=== PATIENT | female | born 1990 | race Caucasian/White ===

== ENCOUNTER 2021-09-22 09:51 | Outpatient (CLI) | payer OTHER, SELFPAY ==
--- NOTE | ~2021-09-22 | XR_ITS ---
EXAMINATION: XR hysterosalpingogram INDICATION: Irregular menstrual periods TECHNIQUE: Hysterosalpingogram was performed by Dr. Matt Henderson MD with fluoroscopic guidance. I w as present to obtain fluoroscopic images. Fluoroscopy exposure time was 0.3 minutes. The DAP for this procedure was 1.48 Gycm2. FINDINGS: [employer] Of [employer] radiograph demonstrates an unremarkable pelvis. Fluoroscopic images demonstrate a no rmal appearing endometrial cavity which has been cannulated. Upon injection of contrast, both fallop carlota tubes opacify and are normal in appearance. There is free spillage bilaterally. Uterus is withou t evidence of synechia. IMPRESSION: Patent fallopian tubes. Reviewed, dictated and finalized at location D. CAL ASSISTANT PER DIEM IMPRESSION: Patent fallopian tubes.
[2021-09-22 11:05] LABS: Beta HCG Quantitative < 2.39 mIU/ML
--- NOTE | 2021-09-22 11:52 | W.PM.PROC2 ---
Procedure Note - Detailed Date of Procedure 09/22/21 Pre-op Diagnosis Infertility Post-op Diagnosis same Procedure Performed Hysterosalpingogram Surgeon Matt Henderson MD Anesthesia none Indications unexplained infertility Findings normal hysterosalpingogram Description of Procedure the patient was placed on the fluoroscopy table. A speculum was placed in the vagina. Cervix was grasped with a tenaculum. The catheter was placed the uterine cavity and the bulb was inflated. The speculum was removed with the angiocath still placed in the intrauterine cavity. Dye was then removed. The catheter. Fluoroscopic images obtained this process. Patient experienced some moderate to severe discomfort. The balloon of the catheter was deflated and the catheter was removed while the images were being obtained. The procedure was terminated. Patient tolerated the procedure well. There were no complications. Estimated Blood Loss 0 Complications No immediate complications Condition stable Disposition other
== END 2021-09-22 09:52 | disposition home or self-care (01) ==
LOC: ANHIMG 09:54
PROVIDERS: Visit Provider Obstetrics & Gynecology
DX: Z01.89 Encounter for other specified special examinations (principal)
CPT/HCPCS: 36415; 58340; 74740; 84702; Q9966

== ENCOUNTER 2022-06-15 00:59 | Day surgery (SDC) | payer OTHER, SELFPAY ==
[2022-06-06 15:51] VITALS: BMI 21.4
--- NOTE | 2022-06-06 15:56 | PC.NURSE ---
Report to the Outpatient Waiting Room, entrance under the green pavilion located off [facility], at time 0600 on date 06/15/22. Planned Procedure Time: 0730. Time changes happen often and if your time is changed the preop area will call you the afternoon before. - You and your visitor will be asked to self-screen and do not enter if you have any COVID symptoms. - We encourage only one visitor and NO visitors under age 16 are allowed at this time. Your visitor will receive communication by the phone number that is given day of service. - The patient visitor is requested to social distance or may leave the building when not with patient due to restrictions. - A mask is OPTIONAL within the hospital. Patients may have clear liquids (water, carbonated beverages, clear teas, apple juice) until 3 hours prior to surgery with a maximum of 20 ounces. - No food from midnight until time of surgery Take the following medications with a SIP of water the morning of surgery: NONE Medications to discontinue per physician: VITAMINS Date to take last dose: 06/11/22 Please no make-up, nail indonesian, hairspray, perfume, deodorant, or body powder the day of surgery. No jewelry (including any body piercings) or valuables the day of surgery, leave them at home. Please take a shower or bath the night before, or the morning of, surgery with an antibacterial soap. Wear comfortable, loose fitting clothing. - Jewelry must be removed prior to entering the operating room. Rings and piercings that are not removed may be cut off. - The hospital will not accept responsibility for valuables. - Please leave all valuables, including medications, at home the day of surgery. If you are going home after surgery, a licensed truck driver flatbed must drive you home. - NO public transportation without another adult. - We recommend that an adult stay with you for 24 hours following discharge. - We also recommend that you do not drive, make important decision, drink alcoholic beverages, or take any drugs that were not prescribed by your health care provider for at least 24 hours after your discharge time. Follow any additional instructions given to you from your surgeon. If you or anyone in your household have experienced Covid symptoms in the past week, please notify your surgeon or the nurse liaison at the phone number below for possible testing. Telephone instructions given to PT - RAFFAELE RIGGINS and asked if any additional questions and then verbalized understanding. Patient advised to call surgeon office or pre surgery nurse liaison [phone] if any additional questions.
[2022-06-15] VITALS (12 sets, daily range): BP systolic 108–133; BP diastolic 56–82; PULSE 61–85; RESP 14–20; TEMP 36.2–36.3; O2SAT 98–100
[2022-06-15] MEDS: ACETAMINOPHEN 500 MG TABLET 1000 MG PO (06:23)
[2022-06-15] MEDS: KETOROLAC 15 MG/ML VIAL (*BKC) IV PUSH (06:33)
--- NOTE | 2022-06-15 06:51 | P.PNAN_ITS ---
Anes - Initial Pre Proc Eval Procedure: Operation Date: 06/15/22 07:30 Proposed Procedures p Diagnostic Laparoscopy - Matt Henderson MD Date/Time: 06/15/22 06:51 Surgeon: Matt Henderson MD Pre Op Diagnosis: pelvic pain Patient Data Age: 32 Gender: F Height: 1.7 m Weight: 64 kg Last Vital Signs Temp 36.2 C L 06/15/22 06:11 Pulse 74 06/15/22 06:11 Resp 16 06/15/22 06:11 BP 121/71 06/15/22 06:11 Pulse Ox 100 06/15/22 06:11 O2 Del Method Room Air 06/15/22 06:11 Allergies Allergy/AdvReac Type Severity Reaction Status Date / Time amoxicillin Allergy Intermediate Hives Verified 06/15/22 06:21 Penicillins Allergy Intermediate Hives Verified 06/15/22 06:21 Sulfa (Sulfonamide Allergy Intermediate Hives Verified 06/15/22 06:21 Antibiotics) Home Medications Medication Instructions Recorded Confirmed Type multivitamin 1 tablet PO DAILY 06/06/22 06/15/22 History Patient hx anesthesia problems: none Family hx anesthesia problems: none Results Review: All pre-operative results and documents have been reviewed as part of the pre- operative evaluation. [facility] Past Medical History Medical History (Updated 06/15/22 @ 06:51 by Zachery Chiang MD) Pain due to interstitial cystitis Surgical History Surgical History (Updated 06/15/22 @ 06:52 by Zachery Chiang MD) History of hip surgery Social History Social History Smoking status: Former smoker Tobacco type: cigarettes Additional smoking assessment comments: SOCIALLY IN COLLEGE 7 YRS AGO Alcohol intake: current Alcohol use details: RARE - SOCIAL Substance use: never Substance use type: does not use Living arrangements: with family Spiritual care concerns: No Anes - Eval Final PreProcedure Day of Procedure 06/15/22 06:51 Patient weight: normal Heart: regular rate and rhythm Lungs: clear to auscultation Airway: Mallampati scale class 1 Neurological: alert and oriented Last oral intake: >/= 8 hours ASA classification: I Emergent: no Anesthetic plan: proceed Anesthesia type and monitoring: general ETT and standard monitoring Results Review: All pre-operative results and documents have been reviewed as part of the pre- operative evaluation. Informed Consent: The patient's anesthetic plan and its attendant risks and benefits were discussed with the patient/family/POA. Questions were solicited and answers provided to the satisfaction of the patient/family/POA.
[2022-06-15] MEDS: LACTATED RINGERS 1,000 ML 30 ML IV CONT ×2 (06:52→09:07)
[2022-06-15] MEDS: SCOPOLAMINE 1.5 MG PATCH TRANSDERM (06:52)
--- NOTE | 2022-06-15 07:19 | WPDHPUPDATE1 ---
History and Physical Update Update Date/Time: 06/15/22 07:19 History and Physical has been reviewed, including an updated exam of the patient. There are NO changes in the patient's condition. Risks, benefits, and alternatives have been discussed and questions answered. Patient agrees to proceed with procedure.
--- NOTE | 2022-06-15 09:31 | W.PM.PROC2 ---
Procedure Note - Detailed Date of Procedure 06/15/22 Pre-op Diagnosis pelvic pain Post-op Diagnosis Same ( endometriosis) Procedure Performed radical resection of endometriosis Surgeon Matt Henderson MD Anesthesia General Indications pelvic pain Findings multiple endometriosis implants in the posterior cul-de-sac. Classic endometriosis with dark clusters of hemorrhagic tissue with surrounding scarring and vascularity, otherwise normal appearing uterus tubes and ovaries. Description of Procedure The patient was taken to the operating room. She was prepped and draped in the dorsal lithotomy position after induction general anesthesia. A 5 mm incision was made with a scalpel on the abdominal skin in the left upper quadrant of the abdomen. A 5 mm trocar was inserted into the intra-abdominal cavity under direct visualization the scope. In the same fashion a 5 mm left lower quadrant trocar was inserted and a 5 mm infraumbilical trocar was inserted. the ovaries were suspended. This was done using Conrad-Edgard Endoclose needle and 0 Vicryl. The bilateral lower quadrants were pierced with the Cnorad-Edgard needle while being transilluminated. They were caring an 0 Vicryl suture which was passed through the ovary bilaterally brought back out through the same incision/puncture site. They were held in place on the skin surface with a hemostat. A FILIBERTO manipulator was placed in the intrauterine cavity using speculum and tenaculum. It was anteflexed. This revealed the entire posterior cul-de-sac clearly. The posterior cul-de-sac peritoneum was removed completely With the exception of the deepest cul-de-sac areas which were fulgurated And the peritoneum over the rectum. From the infundibulopelvic ligament and suspensory ligament ovary laterally to the rectum medially the peritoneum was caudal cephalad dimension was from the pelvic brim down to the uterine arteries Then cervix. This was done with sharp and blunt dissection and cautery. The ureters were dissected out and isolated. Areas in the deepest posterior cul-de-sac were cauterized. There was some very mild endometriotic lesions in this area. The pelvis was irrigated. Copious amounts of irrigation were used. Interceed was placed over the dissected areas bilaterally. Two pieces were used. The pneumoperitoneum was reduced. The trocars were removed. Skin was closed with subcuticular 4 micro. The patient's incisions were covered with Dermabond. She was taken recovery room in stable condition. Sponge lap and needle counts were correct x2. Estimated Blood Loss -50.0 Urine Output -200.0 Complications No immediate complications Condition Stable Disposition Same day
[2022-06-15] MEDS: fentaNYL CITRATE INJ (*CRX) 100 MCG/2 ML VIAL 25 MCG IV PUSH ×4 (09:46→10:02)
[2022-06-15] MEDS: ONDANSETRON INJ 4 MG/2 ML VIAL IV PUSH (09:53)
[2022-06-15] MEDS: diphenhydrAMINE HCl INJ 50 MG/ML VIAL 25 MG IV PUSH (10:29)
== END 2022-06-15 10:59 | disposition home or self-care (01) ==
PROVIDERS: PCP Nurse Practitioner Family; Visit Provider Obstetrics & Gynecology
PROC: (CPT 49320; principal; 2022-06-15 07:30)
DX: N80.329 Endometriosis of the posterior cul-de-sac, unspecified depth (principal); Z87.891 Personal history of nicotine dependence
CPT/HCPCS: 58662; 88305; A9270; J0330; J1200; J1885; J2250; J2405; J2704; J3010; J7030; J7120

== ENCOUNTER → 2023-08-17 15:47 | Outpatient (CLI) | payer OTHER, BC, SELFPAY ==
--- NOTE | ~2023-08-17 | MR_ITS ---
EXAMINATION: MR lumbar spine wo con DATE: 08/17/2023 16:13 INDICATION: Lumbar radiculopathy. Low back pain. TECHNIQUE: Magnetic resonance imaging (MRI) of the lumbar spine was performed without intravenous con trast. Sequences included sagittal T2-weighted FSE, sagittal T2-weighted FS FSE, sagittal T1-weighted FSE, and axial T2-weighted FSE. COMPARISON: None FINDINGS: Bone alignment is normal. Vertebral body heights are normal. There is moderately decreased disc height at L5-S1 with endplate remodeling. The distal spinal cord signal intensity is normal. The conus medullaris is at L1. The following disc levels are specifically discussed: L1-L2: The disc does not extend beyond the endplate margin. There is mild bilateral facet joint osteo arthritis. There is no neural foraminal stenosis. There is no central canal stenosis. L2-L3: The disc does not extend beyond the endplate margin. There is mild right facet joint osteoarth ritis. There is no neural foraminal stenosis. There is no central canal stenosis. L3-L4: The disc does not extend beyond the endplate margin. There is no facet joint osteoarthritis. T here is no neural foraminal stenosis. There is no central canal stenosis. L4-L5: There is a left central extrusion. There is mild bilateral facet joint osteoarthritis. There i s mild bilateral neural foraminal stenosis. There is mild central canal stenosis. L5-S1: The disc is bulging and has an annular fissure. There is mild bilateral facet joint osteoarthr itis. There is mild bilateral neural foraminal stenosis. There is mild central canal stenosis. There is moderate stenosis of left lateral recess. IMPRESSION: 1. Moderate lower lumbar spondylosis. Reviewed, dictated and finalized at location E. ICE CAR OPERATOR
== END ==
DX: M43.06 Spondylolysis, lumbar region (principal); M54.41 Lumbago with sciatica, right side; M54.42 Lumbago with sciatica, left side; X58.XXXA Exposure to other specified factors, initial encounter
CPT/HCPCS: 72148